=== PATIENT | male | born 1945 | race Caucasian/White ===

== ENCOUNTER 2017-06-09 13:30 | Emergency (ER) | payer MEDICARE, OTHER ==
[~2017-06-09] VITALS: Wt 101.7 kg
[~2017-06-09 13:30] MED LIST: ASPI-650 PO; ATOR40TA21 PO; BENA5TAB2 PO; CARV3.1260 PO; DOCU100C PO; GLIP5TAB13 PO; METF500T4 PO; OXYC500S PO; SULF-182 PO
--- NOTE | 2017-06-09 14:16 | ERD ---
ER Documentation Chief Complaint Chief Complaint CLIFFORD WITH DIZZINESS WITH NO CP OR SOB NOTED. NO MISSED BP MEDS. NO NEURO DEF HPI 71-year-old male, with history of coronary artery disease, hypertension, presents to the emergency department complaining of sudden onset this morning of a occipital headache with dizziness. The dizziness is described as a sensation of things are spinning around, associated with a mild throbbing occipital pain 4/10. The patient denies weakness, numbness, tingling. No chest pain, no shortness of breath, no palpitations. ROS A 12-point review of systems was performed and negative other than presented in the history of present illness. SYSTEMIC symptoms: no fever, chills, no night sweats, no weight loss EYE symptoms: No blurred vision, no eye discharge OTOLARYNGEAL symptoms: No hearing loss. No ear pain, no sore throat CARDIOVASCULAR symptoms: No chest pain or discomfort, no palpitations. PULMONARY symptoms: No dyspnea, no cough, no wheezing. GASTROINTESTINAL symptoms: No abdominal pain, no nausea, no vomiting, no diarrhea MUSCULOSKELETAL symptoms: No arthralgias, no muscle aches. NEUROLOGY symptoms: No confusion, no syncope, no numbness or tingling. SKIN: No rashes Medications Home Meds Active Scripts Meclizine Hcl* (Antivert*) 12.5 Mg Tab, 12.5 MG PO Q6H Y for DIZZINESS, #20 TAB Prov:JULIO BLAND MD 06/09/17 Reported Medications Oxycodone Hcl-Acetaminophen* (Oxycodone Hcl-Acetaminophen* Soln) 500 Ml Solution , 1 TAB PO Q6 PRN 06/04/12 Aspirin (Aspirin) 81 Mg Tablet, 81 MG PO DAILY 06/04/12 Sulfamethoxazole-Trimethoprim* (Sulfamethoxazole-Trimethoprim* DS) 1 Tab Tablet , 1 TAB PO BID 04/29/12 Glipizide* (Glipizide*) 5 Mg Tablet, 1 TAB PO BID 04/29/12 Docusate Sodium (Col-Rite) 100 Mg Capsule, 1 TAB PO BID 04/29/12 Atorvastatin (Lipitor) 40 Mg Tablet, 1 TAB PO QHS 04/29/12 Metformin Hcl* (Metformin Hcl*) 500 Mg Tablet, 1 TAB PO BID 04/29/12 Benazepril Hcl* (Benazepril Hcl*) 5 Mg Tablet, 1 TAB PO DAILY 04/29/12 Carvedilol* (Carvedilol*) 3.125 Mg Tablet, 1 TAB PO DAILY 04/29/12 Allergies Allergies: Coded Allergies: No Known Drug Allergies (Verified Allergy, Unknown, 06/04/12) PMhx/Soc History of Surgery: Yes (OPEN HEART APR 2012) Anesthesia Reaction: No Hx Neurological Disorder: No Hx Respiratory Disorders: No Hx Cardiac Disorders: Yes (HTN; HIGH CHOLESTEROL) Hx Psychiatric Problems: No Hx Miscellaneous Medical Probl: Yes (DM) Hx Alcohol Use: No Hx Substance Use: No Hx Tobacco Use: No Smoking Status: Never smoker Physical Exam Vitals Vital Signs Date Time Temp Pulse Resp B/P Pulse Ox O2 Delivery O2 Flow Rate FiO2 06/09/17 13:34 98.5 57 18 132/77 98 Physical Exam Patient is in no acute distress, vital signs stable. Alert and fully oriented. EYES: PERRLA, EOMI, Sclera and conjunctiva appear normal. EARS: Canals clear, tympanic membranes WNL THROAT: Normal oropharynx. NECK: Supple, No lymphadenopathy. Full ROM without pain or tenderness. HEART: RRR, no rubs, murmurs, clicks or gallops. LUNGS: Clear to auscultation. ABDOMEN: Soft, non-tender without masses or hepatosplenomegaly. EXTREMITIES: No edema bilaterally. BACK: Full ROM, no deformity, normal back exam NEURO: Cranial nerves grossly intact, no motor or sensory deficit Results 24 hrs [place] [id number] Radiology Main Line: [phone] DIAGNOSTIC IMAGING REPORT Patient: MARY ELLEN POLK : 1945 Age: 71 Sex: M MR #: [id number] DOS: 06/09/17 1416 Ordering MD: JULIO BLAND MD Location: [facility] Room/Bed: PROCEDURE: CT Brain without contrast. CLINICAL INDICATION: Dizziness TECHNIQUE: A CT of the brain was performed on a multidetector CT scanner utilizing axial imaging from the skull base through the vertex without IV contrast. Multiplanar reformatted images were made. Images were reviewed on a PACS workstation. The CTDIvol is 44 mGy and the DLP is 720 mGycm. DICOM images are available. One or more of the following dose reduction techniques were utilized: 1.) Automated exposure control 2.) Adjustment of the mA +/- kV according to patient's size 3.) Use of iterative reconstruction technique. COMPARISON: Head CT March 29, 2012 FINDINGS: There is mild to moderate age appropriate diffuse cerebral volume loss with sulcal and ventricular dilatation. No discrete extra-axial fluid collection or masses seen. Ventricles are in the midline and of normal contour and configuration. No intra-axial masses or regions of abnormal attenuation are seen. There is preservation of normal melgoza-white discrimination. No intracranial hemorrhage is noted. There is normal aeration of the visualized paranasal sinuses. IMPRESSION: Age-appropriate atrophy. No intracranial hemorrhage, mass or infarct. .Junior Lombardi MD, MD Date Time Electronically viewed and signed by .Junior Lombardi MD, MD on 06/09/2017 15: 14 .A/ CC: JULIO BLAND MD Procedures/MDM 71-year-old male, with history of coronary artery disease and hypertension, presents for evaluation of sudden onset of dizziness and headache since this morning. Vital signs stable, Physical exam unremarkable, neurovascular exam intact Differential diagnosis include but not limited to: Mnire's disease, vestibular neuronitis, migraine, vertigo, side effects of the medications, dehydration, less likely but is still a possibility FACILITY MANAGER HISTOLOGY tumor, stroke. Low suspicion for meningitis, acute infectious process. Pertinent Data: 12 Lead ECG: Sinus rhythm, no acute ST changes, undetermined age for Q waves and abnormal T waves in inferior leads, normal intervals Radiology: CT head: Physical examination and clinical presentation consistent most likely with positional vertigo. During the ED course the patient remained stable, no new complaints. Results and clinical impression discussed with patient who agrees with management. The patient is stable to be treated outpatient and will be discharged home with a Rx for meclizine, some side effects of prescribed medications (headache, rash, nausea, vomiting, diarrhea, drowsiness, habituation , bleeding, hypertension, interactions with other medications) were reviewed. The patient was instructed to follow up with the primary care provider in the next 48h. If symptoms persist, worsen or new symptoms develop, then patient should return to the ED immediately. Instructions explained and given directly by me to the patient in Panamanian with acknowledgment and demonstrated understanding. Disclaimer: Inadvertent spelling and grammatical errors are likely due to EHR/ dictation software use and do not reflect on the overall quality of patient care. Also, please note that the electronic time recorded on this note does not necessarily reflect the actual time of the patient encounter. Departure Diagnosis: Primary Impression: Dizziness Condition: Stable Patient Instructions: Possible Causes of Dizziness or Fainting, Dizziness ( Vertigo) and Balance Problems: Ensuring Your Safety Additional Instructions: Muchas uche por [facility] para carrasquillo servicio. Esperamos que en carrasquillo visita a la cristian de emergencia carrasquillo problema medico haya sido solucionado y que se sienta mucho mejor. Para estar seguros que carrasquillo mejoria sigue en proceso, le pedimos el favor de hacer marcia jose m de seguimiento medico con carrasquillo doctor primario en los proximos 2-4 crum. Lleve con usted estos documentos y las medicinas recetadas. Si tuan sintomas empeoran y no puede efren a carrasquillo doctor, por favor regrese a cristian de emergencia. En henna que usted no tenga un mdico de atencin primaria: Llame al mdico o clnica comunitaria de referencia que aparece abajo niraj las horas de consultorio para hacer marcia jose m para que le vean. CLINICAS: [facility] [phone] [facility] [phone] [facility] [phone] [facility] [phone] [facility] [phone] [facility] [phone] MD Jun 09, 2017 14:16
--- NOTE | 2017-06-09 15:14 | RADRPT ---
PROCEDURE: CT Brain without contrast. CLINICAL INDICATION: Dizziness TECHNIQUE: A CT of the brain was performed on a multidetector CT scanner utilizing axial imaging f rom the skull base through the vertex without IV contrast. Multiplanar reformatted images were made . Images were reviewed on a PACS workstation. The CTDIvol is 44 mGy and the DLP is 720 mGycm. DICOM images are available. One or more of the following dose reduction techniques were utilized: 1.) Automated exposure control 2.) Adjustment of the mA +/- kV according to patient's size 3.) Use of iterative reconstruction technique. COMPARISON: Head CT March 29, 2012 FINDINGS: There is mild to moderate age appropriate diffuse cerebral volume loss with sulcal and ventricular d ilatation. No discrete extra-axial fluid collection or masses seen. Ventricles are in the midline an d of normal contour and configuration. No intra-axial masses or regions of abnormal attenuation are seen. There is preservation of normal melgoza-white discrimination. No intracranial hemorrhage is noted . There is normal aeration of the visualized paranasal sinuses. IMPRESSION: Age-appropriate atrophy. No intracranial hemorrhage, mass or infarct. .Junior Lombardi MD, Date Time Electronically viewed and signed by .Junior Lombardi MD, on 06/09/2017 15:14 .A/
[2017-06-09] MEDS ORDERED: MECL12.574 PO (16:13)
[2017-06-09 16:25] VITALS: BP 140/69; PULSE 62; RESP 16
== END 2017-06-09 16:27 | disposition home or self-care (01) ==
LOC: FTE 13:30
DX: R42 Dizziness and giddiness (principal); I10 Essential (primary) hypertension; I25.10 Atherosclerotic heart disease of native coronary artery without angina pectoris; E11.9 Type 2 diabetes mellitus without complications; Z79.84 Long term (current) use of oral hypoglycemic drugs; Z79.82 Long term (current) use of aspirin
CPT/HCPCS: 70450; 93005

== ENCOUNTER 2018-06-10 09:43 | Emergency (ER) | END 2018-06-10 13:30 | disposition home or self-care (01) ==